=== PATIENT | male | born 1950 | race Two or more races ===

== ENCOUNTER 2021-12-19 03:18 | Emergency (ER) | payer OTHER ==
[~2021-12-19] VITALS: Ht 180.3 cm; Wt 104.5 kg
[2021-12-19 03:18] VITALS: BP 154/98
== END 2021-12-19 04:52 | disposition left against medical advice (07) ==
LOC: M ED 03:18
DX: Z53.21 Procedure and treatment not carried out due to patient leaving prior to being seen by health care provider (principal)

== ENCOUNTER 2024-11-22 09:22 | Emergency (ER) | payer MEDICARE, OTHER ==
[~2024-11-22] VITALS: Ht 177.8 cm; Wt 117.7 kg
[2024-11-22] MEDS: ONDANSETRON 4MG 2ML VIAL IV ONE (10:46)
[2024-11-22] MEDS: KETOROLAC 30 MG/ML 1 ML VIAL IV ONE (10:52)
[2024-11-22 11:12] LABS: BASO # 0.0 10^3/uL (0.0-0.2); BASO % 0.1 % (0.0-1.0); EOS # 0.0 10^3/uL (0.0-0.5); EOS % 0.0 % (0.0-3.0); LYMPH # 1.8 10^3/uL (1.5-5.0); LYMPH % 10.3 % (24.0-44.0); MONO # 1.1 10^3/uL (0.0-0.8); MONO % 6.1 % (2.0-8.0); NEUTROPHILS # 14.6 10^3/uL (1.5-8.5); NEUTROPHILS % 83.1 % (36.0-66.0); PLATELET COUNT, AUTOMATED 113 10^3/uL (150-450)
[2024-11-22 11:17] LABS: KETONE, URINE AUTO RFX TRACE mg/dL (NEGATIVE); LEUKOCYTE ESTERASE UR AUTO RFX NEGATIVE (NEGATIVE); NITRITE, URINE AUTO RFX NEGATIVE (NEGATIVE); RBC, URINE AUTO RFX 3 /HPF (0-3); SQUAM EPITHELIAL CELL UR AURFX 2 /HPF (0-6); WBC, URINE AUTO RFX 2 /HPF (0-3)
[2024-11-22 11:31] LABS: ALT/SGPT 59.0 U/L (7.0-40); AST/SGOT 35.0 U/L (<34); CALCIUM LEVEL 10.7 MG/DL (8.3-10.6); CARBON DIOXIDE LEVEL 22.0 MMOL/L (20-31); CHLORIDE LEVEL 103.0 MMOL/L (98-107); CREATININE FOR GFR 1.9 MG/DL (0.70-1.30); GLOMERULAR FILTRATION RATE 37.0 (>42); POTASSIUM SERUM 4.4 MMOL/L (3.5-5.1); SODIUM LEVEL 141.0 MMOL/L (136-145)
[2024-11-22] MEDS: NS 500 ML IV ONE (13:04)
[2024-11-22 14:21] VITALS: BP 144/98; TEMP 98; O2SAT 98
[2024-11-22] MEDS ORDERED: TAMS-18 PO (14:24)
== END 2024-11-22 14:42 | disposition home or self-care (01) ==
LOC: M ED 09:22 → CANBEDREQ 14:22 → M ED 14:42
DX: N20.0 Calculus of kidney (principal); Z79.899 Other long term (current) drug therapy
CPT/HCPCS: 74176; 80048; 80076; 81001; 83605; 83690; 85025; 96361; 96374; 96375; 99284; J1885; J2405

== ENCOUNTER 2024-12-06 07:27 | Emergency (ER) | payer MEDICARE ==
[~2024-12-06] VITALS: Ht 180.3 cm; Wt 111.6 kg
[~2024-12-06 07:27] MED LIST: TAMS-18 PO
[2024-12-06 08:36] LABS: KETONE, URINE AUTO RFX NEGATIVE (NEGATIVE); LEUKOCYTE ESTERASE UR AUTO RFX NEGATIVE (NEGATIVE); MUCUS, URINE RFX SMALL (NEGATIVE); NITRITE, URINE AUTO RFX NEGATIVE (NEGATIVE); RBC, URINE AUTO RFX 0 /HPF (0-3); SQUAM EPITHELIAL CELL UR AURFX 1 /HPF (0-6); WBC, URINE AUTO RFX 1 /HPF (0-3)
[2024-12-06 08:37] LABS: BASO # 0.0 10^3/uL (0.0-0.2); BASO % 0.1 % (0.0-1.0); EOS # 0.0 10^3/uL (0.0-0.5); EOS % 0.0 % (0.0-3.0); LYMPH # 1.7 10^3/uL (1.5-5.0); LYMPH % 14.3 % (24.0-44.0); MONO # 0.7 10^3/uL (0.0-0.8); MONO % 5.4 % (2.0-8.0); NEUTROPHILS # 9.5 10^3/uL (1.5-8.5); NEUTROPHILS % 79.9 % (36.0-66.0); PLATELET COUNT, AUTOMATED 190 10^3/uL (150-450)
[2024-12-06 09:03] LABS: ALT/SGPT 45.0 U/L (7.0-40); AST/SGOT 26.0 U/L (<34); CALCIUM LEVEL 10.6 MG/DL (8.3-10.6); CARBON DIOXIDE LEVEL 23.0 MMOL/L (20-31); CHLORIDE LEVEL 101.0 MMOL/L (98-107); CREATININE FOR GFR 1.02 MG/DL (0.70-1.30); GLOMERULAR FILTRATION RATE 78.1 (>42); POTASSIUM SERUM 4.2 MMOL/L (3.5-5.1); SODIUM LEVEL 137.0 MMOL/L (136-145)
[2024-12-06] MEDS: ONDANSETRON 4MG ORAL DISINTEGRATING TAB PO ONE (11:50)
[2024-12-06 12:12] LABS: KETONE, URINE AUTO RFX NEGATIVE (NEGATIVE); LEUKOCYTE ESTERASE UR AUTO RFX NEGATIVE (NEGATIVE); MUCUS, URINE RFX SMALL (NEGATIVE); NITRITE, URINE AUTO RFX NEGATIVE (NEGATIVE); RBC, URINE AUTO RFX 0 /HPF (0-3); SQUAM EPITHELIAL CELL UR AURFX 2 /HPF (0-6); WBC, URINE AUTO RFX 1 /HPF (0-3)
[2024-12-06] MEDS: METOCLOPRAMIDE 10 MG TAB PO ONE (15:20)
[2024-12-06] MEDS ORDERED: OMEP40CA4 PO (16:42)
[2024-12-06] MEDS ORDERED: REGL10TA6 PO (16:42)
[2024-12-06 16:45] VITALS: BP 137/90; TEMP 99.5; O2SAT 98
== END 2024-12-06 16:52 | disposition home or self-care (01) ==
LOC: M ED 07:27
DX: K29.80 Duodenitis without bleeding (principal); R91.1 Solitary pulmonary nodule; R11.10 Vomiting, unspecified; Z79.899 Other long term (current) drug therapy

== ENCOUNTER → 2024-12-14 | Outpatient (REF) | payer MEDICARE ==
[~2024-12-14] MED LIST changes: +OMEP40CA4 PO; +REGL10TA6 PO
[2024-12-14 17:15] LABS: PROSTATIC SPECIFIC AG MONITOR 7.06 NG/ML (< 4.00)
[2024-12-14 17:17] LABS: ALT/SGPT 51 U/L (7.0-40); AST/SGOT 25 U/L (<34); CALCIUM LEVEL 9.7 MG/DL (8.3-10.6); CARBON DIOXIDE LEVEL 25 MMOL/L (20-31); CHLORIDE LEVEL 106 MMOL/L (98-107); CHOLESTEROL LEVEL 162 MG/DL (<200); CHOLESTEROL RISK RATIO 5.20 (<5); CREATININE FOR GFR 0.89 MG/DL (0.70-1.30); GLOMERULAR FILTRATION RATE > 90.0 (>42); LDL CHOLESTEROL 87.5 MG/DL (<100); MAGNESIUM LEVEL 2.1 MG/DL (1.8-2.4); NON-HDL-C 130.9 MG/DL; POTASSIUM SERUM 4.5 MMOL/L (3.5-5.1); SODIUM LEVEL 142 MMOL/L (136-145); TRIGLYCERIDES LEVEL 217 MG/DL (<150)
[2024-12-14 17:19] LABS: TOTAL 25(OH) VITAMIN D 29.9 NG/ML (20.0-100.0)
[2024-12-14 17:44] LABS: ESTIMATED AVERAGE GLUCOSE 123.0 MG/DL (60-110)
[2024-12-14 17:45] LABS: HIV 1&2 SCREEN NEGATIVE (NEGATIVE)
[2024-12-14 17:51] LABS: HEPATITIS C VIRUS ABY INDEX 0.03 INDEX (<0.8)
== END ==
LOC: M LAB REF 16:36
PROVIDERS: ATTEND Physician Assistant
DX: Z11.9 Encounter for screening for infectious and parasitic diseases, unspecified (principal); E55.9 Vitamin D deficiency, unspecified; Z12.5 Encounter for screening for malignant neoplasm of prostate; N20.0 Calculus of kidney; Z79.899 Other long term (current) drug therapy

== ENCOUNTER → 2025-01-01 | Outpatient (CLI) | payer MEDICARE | LOC: M PLAIMG 14:23 | PROVIDERS: ATTEND Physician Assistant | DX: R91.8 Other nonspecific abnormal finding of lung field (principal) ==

== ENCOUNTER → 2025-01-01 | Outpatient (REF) | payer MEDICARE | LOC: M SMT 16:57 | PROVIDERS: ATTEND Physician Assistant | DX: N20.0 Calculus of kidney (principal) ==